=== PATIENT | male | born 1990 | race African-American/Black ===

== ENCOUNTER 2021-04-08 21:39 | Observation (INO) ==
[2021-04-08] MEDS ORDERED: DIPH/TET/ACEL PERT BOOSTER VACCINE 0.5 ML VIAL IM ONE (22:31)
[2021-04-08] MEDS ORDERED: ceFAZolin 1,000 MG VIAL IM ONE (22:31)
[2021-04-08] MEDS ORDERED: HYDROmorphone 2 MG/1 ML VIAL IV ONE (23:35)
[2021-04-08] MEDS ORDERED: ONDANSETRON 4 MG/2 ML VIAL IV STA (23:35)
[2021-04-09 00:08] LABS: Basophils # 0.1 10*3/uL (0.0-0.2); Basophils % 0.5 % (0.0-0.8); Eosinophils % 0.1 % (0.00-10.9); Hematocrit 40.7 VOL% (42.0-52.0); Hemoglobin 13.5 GM/DL (14.0-18.0); Immature Granulocytes % 0.5 %; Immature Granulocytes Absolute 0.06 #; Lymphocytes % 7.2 % (21.2-54.2); Mean Corpuscular HGB Conc 33.2 GM/DL (32-36); Mean Platelet Volume 9.7 FL (9.6-12.0); Monocytes % 7.2 % (1.7-12.7); Neutrophils % 84.5 % (38.7-73.9); Platelet Count 249 T/CUMM (130-400); Red Blood Count 4.73 MC/CUMM (3.8-5.5); Red Cell Distribution Width 14.6 % (9.3-17.3); White Blood Count 13.3 T/CUMM (4-12)
[2021-04-09 00:15] LABS: Albumin 4.3 G/DL (3.4-5.0); Bilirubin,Total 0.4 MG/DL (0.2-1.0); Calcium 9.5 MG/DL (8.5-10.1); Osmolality,Calculated 273.7 MOS/KG (273-304); Potassium 3.6 MMOL/L (3.5-5.1)
[2021-04-09 00:37] LABS: PT Patient Result 11.4 SECS (10.5-12.0)
[2021-04-09] MEDS ORDERED: HYDROmorphone 2 MG/1 ML VIAL IV PRN (00:40)
[2021-04-09] MEDS ORDERED: MAGNESIUM HYDROXIDE SUSP 30 ML UDCUP PO PRN (00:40)
[2021-04-09] MEDS: SODIUM CHLORIDE 0.9% 1,000 ML IV SCH ×2 (02:00→14:33)
[2021-04-09 03:13] LABS: Bilirubin,Total 0.4 MG/DL (0.2-1.0); Calcium 9.1 MG/DL (8.5-10.1); Osmolality,Calculated 271.8 MOS/KG (273-304); Potassium 4.2 MMOL/L (3.5-5.1); Total Protein 7.5 G/DL (6.4-8.2)
[2021-04-09] MEDS ORDERED: ROCURONIUM 50 MG/5 ML VIAL IV ONE (06:30)
[2021-04-09] MEDS ORDERED: LIDOCAINE 2% 5 ML VIAL ONE (06:30)
[2021-04-09] MEDS ORDERED: fentaNYL 100 MCG/2 ML VIAL ONE (06:30)
[2021-04-09] MEDS ORDERED: ONDANSETRON 4 MG/2 ML VIAL ONE (06:30)
[2021-04-09] MEDS ORDERED: propofoL 200 MG/20 ML VIAL IV ONE (06:30)
[2021-04-09] MEDS ORDERED: SEVOFLURANE 1 UNIT/15 MINUTE INH ONE ×3 (06:30→10:16)
[2021-04-09] MEDS ORDERED: MIDAZOLAM 2 MG/2 ML VIAL ONE (06:31)
[2021-04-09] MEDS ORDERED: DEXAMETHASONE 4 MG/1 ML VIAL ONE (07:09)
[2021-04-09] MEDS ORDERED: ROPIVACAINE 0.5% 30 ML VIAL ONE (07:09)
[2021-04-09] MEDS ORDERED: LIDOCAINE 1% 5 ML VIAL ONE (07:09)
[2021-04-09] MEDS ORDERED: DEXMEDETOMIDINE 200 MCG/2 ML VIAL ONE (09:58)
[2021-04-09] MEDS ORDERED: NEOSTIGMINE 10 MG/10 ML VIAL ONE (09:59)
[2021-04-09] MEDS ORDERED: GLYCOPYRROLATE 0.4 MG/2 ML VIAL ONE (10:00)
[2021-04-09] MEDS ORDERED: BACITRACIN OINT 0.9 GM PACK TOP ONE (10:04)
[2021-04-09] MEDS ORDERED: KETOROLAC 30 MG/1 ML VIAL IV PRN (10:16)
[2021-04-09] MEDS: ceFAZolin 2,000 MG/50 ML DUPLEX IV SCH ×2 (17:26→23:41)
[2021-04-10] MEDS: FONDAPARINUX 2.5 MG/0.5 ML SYRINGE SUBCUT SCH ×2 (07:49→10:45)
[2021-04-10 11:22] VITALS: BP 151/91
== END 2021-04-10 12:30 | disposition home or self-care (01) ==
LOC: N.EDINP 21:39 → N.ED 21:39 → N.EDINP 04-09 01:12 → N.3E 04-09 02:10
PROVIDERS: ADMIT Orthopaedic Surgery; ATTEND Orthopaedic Surgery